=== PATIENT | female | born 1985 | race Caucasian/White ===

== ENCOUNTER 2020-05-20 13:45 | Outpatient (REF) | payer MEDICAID, SELFPAY ==
--- NOTE | 2020-05-20 | US_ITS ---
EXAMINATION: US PELVIS, COMPLETE CLINICAL INFORMATION: Pelvic and perineal pain. COMPARISON: None. TECHNIQUE: Transabdominal and transvaginal imaging was performed. FINDINGS: LMP: 3 weeks ago. Uterus is anteverted , measuring 10.5 x 4.3 x 5.6 cm. No focal uterine lesion. Endometrial thickness 1.5 cm. Nabothian cysts present. Right ovary measures 3.8 x 2.5 x 2.7 cm. Volume 13.4 mL. A 2 cm cyst present. Left ovary measures 3.4 x 1.8 x 2 cm. Volume 6.4 mL. Multiple follicles, with the largest cyst measuring 1.8 cm. Vascular flow in bilateral ovaries. No free fluid in the cul-de-sac. IMPRESSION: Unremarkable pelvic ultrasound. Bilateral ovarian cysts, largest measuring up to 2 cm in size.
== END 2020-05-20 13:46 | disposition home or self-care (01) ==
LOC: HO.US 13:45
PROVIDERS: Visit Provider Family Medicine
DX: R10.2 Pelvic and perineal pain (principal)
CPT/HCPCS: 76830; 76856

== ENCOUNTER 2021-11-02 14:43 | Outpatient (REF) | payer MEDICAID, SELFPAY ==
--- NOTE | ~2021-11-02 | US_ITS ---
EXAMINATION: US PELVIS CLINICAL INFORMATION: Pain COMPARISON: Previous pelvic ultrasound May 2020 TECHNIQUE: Ultrasound of the pelvis is performed using both transabdominal and transvaginal transducers along with Doppler. Transvaginal imaging is performed due to inadequate visualization transabdominally. FINDINGS: The uterus is anteverted and measures 10 x 4.5 x 5.8 cm in dimension. No focal uterine lesion is seen. Endometrial thickness is normal measuring 0.6 cm. The right ovary is normal-appearing and measures 3.9 x 2.6 cm. The left ovary measures 3.5 x 2.9 x 3.4 cm. There is a 1.5 x 1.2 x 1.5 cm left adnexal or paraovarian simple cyst. This is slightly decreased in size from 1.8 x 1.6 x 1.8 cm on previous exam. There is a small amount of fluid in the pelvis. US/US pelvic and transvaginal IMPRESSION: 1.5 x 1.2 x 1.5 cm left adnexal or paraovarian simple cyst slightly decreased from 1.8 x 1.6 x 1.8 cm on May 2020 exam.
== END 2021-11-02 14:44 | disposition home or self-care (01) ==
LOC: HO.HMGCX 14:43
PROVIDERS: PCP Family Medicine; Visit Provider Family Medicine
DX: R10.2 Pelvic and perineal pain (principal)
CPT/HCPCS: 76830; 76856

== ENCOUNTER 2022-05-20 11:07 | Outpatient (REF) | payer MEDICAID, SELFPAY ==
--- NOTE | ~2022-05-20 | XR_ITS ---
EXAMINATION: XR CHEST CLINICAL INFORMATION: Preprocedural evaluation COMPARISON: None TECHNIQUE: 2 views of the chest were obtained. FINDINGS: The lungs are clear. There is no airspace consolidation or groundglass opacity or effusion. The costophrenic sulci are well-defined. The heart is normal in size. The vascularity is normal. The hilar and mediastinal contours and bony structures are unremarkable. XR/XR chest 2V IMPRESSION: Unremarkable examination.
--- NOTE | 2022-05-20 11:14 | ECG_ITS ---
Test Reason : PREPROC EXAM Blood Pressure : / mmHG Vent. Rate : 076 BPM Atrial Rate : 076 BPM P-R Int : 170 ms QRS Dur : 084 ms QT Int : 386 ms P-R-T Axes : 053 000 029 degrees QTc Int : 434 ms Normal sinus rhythm Normal ECG No previous ECGs available Referred By: Ivy Harman Electronically Signed By:ETJ MOODY
[2022-05-20 12:17] LABS: Hematocrit 37.4 % (37.0-47.0); Hemoglobin 11.8 g/dl (12.0-16.0); Mean Corpuscular HGB Conc 31.6 g/dl (31.0-35.0); Mean Corpuscular Hemoglobin 26.6 pg (27.0-33.0); Mean Corpuscular Volume 84.4 fL (80.0-98.0); Mean Platelet Volume 10.9 fL (9.4-12.3); Platelet Count 279 X10*3/uL (160-400); Red Blood Count 4.43 X10*6/uL (4.20-5.50); Red Cell Distribution Width 13.4 % (11.0-16.0); White Blood Count 6.5 X10*3/uL (4.8-10.8)
[2022-05-20 12:23] LABS: INTERNATIONAL NORM RATIO 1.1 (0.9-1.1); Prothrombin Time 12.4 SEC (10.0-13.1)
[2022-05-20 12:26] LABS: Partial Thromboplastin Time 31.8 SEC (26.0-36.4)
[2022-05-20 13:10] LABS: Anion Gap 13 (12-20); Blood Urea Nitrogen 9 mg/dL (9-16); Calcium 9.9 mg/dL (8.4-10.2); Carbon Dioxide 25 mmol/L (22-29); Chloride 103 mmol/L (96-108); Estimated Glomerular Filt Rate > 60; Glucose Random 78 mg/dL (60-115); Iron 92 mcg/dL (30-160); Percent Iron Saturation 26 % (15-50); Potassium 3.9 mmol/L (3.3-5.1); Sodium 137 mmol/L (135-145); Total Iron Binding Capacity 358 mcg/dL (228-428); Unsaturated Iron Binding 266 ug/dL
[2022-05-20 13:18] LABS: Ferritin 47 ng/mL (10-122)
[2022-05-20 13:25] LABS: Folate 19.8 ng/mL (> or = 4.0); Vitamin B12 972 pg/mL (200-900)
== END 2022-05-20 11:08 | disposition home or self-care (01) ==
LOC: HO.XRAY 11:07
PROVIDERS: PCP Family Medicine; Visit Provider Family Medicine
DX: Z01.818 Encounter for other preprocedural examination (principal)
CPT/HCPCS: 36415; 71046; 80048; 82607; 82728; 82746; 83540; 85027; 85610; 85730; 93005

== ENCOUNTER 2022-11-25 11:25 | Outpatient (REF) | payer MEDICAID, SELFPAY ==
--- NOTE | 2022-11-25 08:30 | EMG_ITS ---
Bilateral median and ulnar motor and sensory studies were performed. Bilateral radial sensory studies were performed, and paraspinal muscles were tested with a needle. 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 MD KADE Parekh/MAXX / [id number]
== END 2022-11-25 11:26 | disposition home or self-care (01) ==
LOC: HO.NEURO 11:25
PROVIDERS: PCP Family Medicine; Visit Provider Family Medicine
DX: R20.0 Anesthesia of skin (principal); M79.603 Pain in arm, unspecified
CPT/HCPCS: 95886; 95911

== ENCOUNTER 2023-08-04 13:32 | Outpatient (REF) | payer MEDICAID, SELFPAY ==
[2023-08-04 17:03] LABS: CT PCR NOT DETECTED (Not Detect.); NG PCR NOT DETECTED (Not Detect.)
[2023-08-05 13:21] LABS: BV Int Neg Control Negative (Negative); BV Int Pos Control Positive (Positive)
[2023-08-11 07:54] LABS: HPV mRNA E6/E7 rflx Not Detected (Not Detected)
== END 2023-08-04 13:33 | disposition home or self-care (01) ==
LOC: HO.HHCLNP 13:32
PROVIDERS: Visit Provider Family Medicine
DX: Z01.419 Encounter for gynecological examination (general) (routine) without abnormal findings (principal); Z11.51 Encounter for screening for human papillomavirus (HPV)
CPT/HCPCS: 0353U; 87480; 87510; 87624; 87660; 88142

== ENCOUNTER 2023-08-16 08:11 | Outpatient (REF) | payer MEDICAID, SELFPAY ==
[2023-08-16 11:07] LABS: Hematocrit 40.4 % (37.0-47.0); Hemoglobin 12.6 g/dl (12.0-16.0); Mean Corpuscular HGB Conc 31.2 g/dl (31.0-35.0); Mean Corpuscular Hemoglobin 27.3 pg (27.0-33.0); Mean Corpuscular Volume 87.6 fL (80.0-98.0); Mean Platelet Volume 11.2 fL (9.4-12.3); Platelet Count 273 X10*3/uL (160-400); Red Blood Count 4.61 X10*6/uL (4.20-5.50); Red Cell Distribution Width 14.1 % (11.0-16.0); White Blood Count 8.4 X10*3/uL (4.8-10.8)
[2023-08-16 11:37] LABS: Estimated Average Glucose 117 mg/dL; Hemoglobin A1c % 5.7 % (<6.0)
[2023-08-16 12:46] LABS: Alanine Aminotransferase 15 U/L (0-31); Albumin Level 4.3 g/dL (3.5-5.0); Alkaline Phosphatase 66 U/L (39-117); Anion Gap 10 (12-20); Aspartate Amino Transferase 19 U/L (5-31); Bilirubin Direct 0.1 mg/dL (0.0-0.5); Bilirubin Total 0.3 mg/dL (0.0-1.0); Blood Urea Nitrogen 9 mg/dL (9-16); Calcium 9.5 mg/dL (8.4-10.2); Carbon Dioxide 27 mmol/L (22-29); Chloride 108 mmol/L (96-108); Cholesterol 186 mg/dL (<200); Estimated Glomerular Filt Rate > 60; Glucose Random 89 mg/dL (60-115); HDL Cholesterol 48 mg/dL (>40); LDL Cholesterol Calculated 118 mg/dL (<100); Potassium 5.3 mmol/L (3.3-5.1); Sodium 140 mmol/L (135-145); Total Protein 7.9 g/dL (6.5-8.0); Triglycerides 102 mg/dL (<150)
[2023-08-16 13:03] LABS: Free T4 (Free Thyroxine) 0.89 ng/dL (0.71-1.85); Thyroid Stimulating Hormone 0.81 uIU/mL (0.32-4.0); Vitamin D 25-OH Total 30.8 ng/mL (>30)
[2023-08-17 04:48] LABS: HBS Num1 52.73 mIU/mL (0-7.99); HBsAGNum1 0.27 S/CO (0.00-0.99); HIV AB/AG Nonreactive (Nonreactive); HIV Num 1 0.06 S/CO (0.00-0.99); Hepatitis B Surface Antigen Negative (Negative); ~HepC Num1 0.13 S/CO (0.00-0.79); ~Hepatitis B Surface Antibody REACTIVE (Nonreactive); ~Hepatitis C Antibody Nonreactive (Nonreactive)
[2023-08-17 13:07] LABS: RPR Rapid Plasma Reagin NON-REACTIVE (NON-REACTIVE)
== END 2023-08-16 08:12 | disposition home or self-care (01) ==
LOC: HO.HHCL 08:11
PROVIDERS: Visit Provider Family Medicine
DX: Z01.419 Encounter for gynecological examination (general) (routine) without abnormal findings (principal)
CPT/HCPCS: 36415; 80048; 80061; 80076; 82306; 83036; 84439; 84443; 85027; 86592; 86706; 86803; 87340; 87389

== ENCOUNTER 2023-08-23 13:09 | Outpatient (REF) | payer MEDICAID, SELFPAY ==
[2023-08-23 17:36] LABS: Potassium 4.4 mmol/L (3.3-5.1)
== END 2023-08-23 13:10 | disposition home or self-care (01) ==
LOC: HO.HHCL 13:09
PROVIDERS: Visit Provider Family Medicine
DX: E87.5 Hyperkalemia (principal)
CPT/HCPCS: 36415; 84132

== ENCOUNTER 2023-10-07 16:20 | Outpatient (REF) | payer MEDICAID, SELFPAY ==
[2023-10-07 17:40] LABS: MANUAL DIFF FLAG NO
[2023-10-07 17:42] LABS: Basophils Absolute Auto 0.1 X10*3/uL (0.0-0.2); Basophils Percent Auto 0.9 % (0-2); Eosinophils Absolute Auto 0.5 X10*3/uL (0.0-0.4); Eosinophils Percent Auto 5.7 % (0-4); Hematocrit 37.1 % (37.0-47.0); Hemoglobin 11.6 g/dl (12.0-16.0); Imm Gran Abs Auto 0.03 X10*3/uL (0.00-0.03); Imm Gran Pct Auto 0.3 % (0.0-0.4); Mean Corpuscular HGB Conc 31.3 g/dl (31.0-35.0); Mean Corpuscular Hemoglobin 26.5 pg (27.0-33.0); Mean Corpuscular Volume 84.9 fL (80.0-98.0); Mean Platelet Volume 10.8 fL (9.4-12.3); Monocytes Absolute Auto 0.8 X10*3/uL (0.1-1.2); Monocytes Percent Auto 9.2 % (2-11); Neutrophils Absolute Auto 4.5 x10*3/uL (2.0-8.3); Neutrophils Percent Auto 50.9 % (45-73); Platelet Count 289 X10*3/uL (160-400); Red Blood Count 4.37 X10*6/uL (4.20-5.50); Red Cell Distribution Width 13.7 % (11.0-16.0); White Blood Count 8.9 X10*3/uL (4.8-10.8)
[2023-10-07 18:05] LABS: Iron 128 mcg/dL (30-160); Percent Iron Saturation 42 % (15-50); Total Iron Binding Capacity 305 mcg/dL (228-428); Unsaturated Iron Binding 177 ug/dL
[2023-10-07 18:20] LABS: Ferritin 32 ng/mL (10-122)
== END 2023-10-07 16:21 | disposition home or self-care (01) ==
LOC: HO.HHCLNP 16:20
PROVIDERS: Visit Provider Family Medicine
DX: D64.9 Anemia, unspecified (principal)
CPT/HCPCS: 36415; 82728; 83540; 85025

== ENCOUNTER 2024-07-27 12:28 | Outpatient (REF) | payer MEDICAID, SELFPAY ==
[2024-07-27 16:10] LABS: Hematocrit 38.7 % (37.0-47.0); Hemoglobin 12.1 g/dl (12.0-16.0); Mean Corpuscular HGB Conc 31.3 g/dl (31.0-35.0); Mean Corpuscular Hemoglobin 26.8 pg (27.0-33.0); Mean Corpuscular Volume 85.8 fL (80.0-98.0); Mean Platelet Volume 10.9 fL (9.4-12.3); Platelet Count 314 X10*3/uL (160-400); Red Blood Count 4.51 X10*6/uL (4.20-5.50); Red Cell Distribution Width 13.5 % (11.0-16.0); White Blood Count 9.6 X10*3/uL (4.8-10.8)
[2024-07-27 16:24] LABS: Estimated Average Glucose 126 mg/dL; Hemoglobin A1C 130.7231 umol/L
[2024-07-27 16:40] LABS: Alanine Aminotransferase 26 U/L (0-31); Albumin Level 4.5 g/dL (3.5-5.0); Alkaline Phosphatase 71 U/L (39-117); Anion Gap 11 (12-20); Aspartate Amino Transferase 23 U/L (5-31); Bilirubin Direct < 0.2 mg/dL (0.0-0.5); Bilirubin Total 0.2 mg/dL (0.0-1.0); Blood Urea Nitrogen 12 mg/dL (9-16); Calcium 9.6 mg/dL (8.4-10.2); Carbon Dioxide 26 mmol/L (22-29); Chloride 107 mmol/L (96-108); Cholesterol 191 mg/dL (<200); Estimated Glomerular Filt Rate > 60; Glucose Random 89 mg/dL (60-115); HDL Cholesterol 45 mg/dL (>40); LDL Cholesterol Calculated 122 mg/dL (<100); Sodium 140 mmol/L (135-145); Total Protein 8.2 g/dL (6.5-8.0); Triglycerides 121 mg/dL (<150)
[2024-07-27 16:41] LABS: Rheumatoid Factor < 13.0 IU/mL (<15.0)
[2024-07-27 16:48] LABS: Free T4 (Free Thyroxine) 1.17 ng/dL (0.71-1.85); Thyroid Stimulating Hormone 0.51 uIU/mL (0.32-4.0); Vitamin D 25-OH Total 28.9 ng/mL (>30)
[2024-07-27 16:53] LABS: Erythrocyte Sedimentation Rate 14 MM/HR (0-20)
[2024-07-27 18:47] LABS: CT PCR NOT DETECTED (Not Detect.); NG PCR NOT DETECTED (Not Detect.)
[2024-07-28 08:41] LABS: Hepatitis A Antibody IgG Nonreactive (Nonreactive)
[2024-07-28 08:55] LABS: HBc Num1 0.11 S/CO (0.00-0.79); HBsAGNum1 0.49 S/CO (0.00-0.99); HIV AB/AG Nonreactive (Nonreactive); HIV Num 1 0.06 S/CO (0.00-0.99); Hepatitis B Core Antibody Nonreactive (Nonreactive); Hepatitis B Surface Antigen Negative (Negative); ~HepC Num1 0.11 S/CO (0.00-0.79); ~Hepatitis B Surface Antibody REACTIVE (Nonreactive); ~Hepatitis C Antibody Nonreactive (Nonreactive)
[2024-07-30 14:43] LABS: Anti Nuclear Antibody Screen NEGATIVE (NEGATIVE)
[2024-07-30 16:30] LABS: RPR Rapid Plasma Reagin NON-REACTIVE (NON-REACTIVE)
[2024-07-31 09:59] LABS: Lyme Abs Screen <0.90 index
== END 2024-07-27 12:29 | disposition home or self-care (01) ==
LOC: HO.HHCX 12:28
PROVIDERS: PCP Family Medicine; Visit Provider Family Medicine
DX: R20.0 Anesthesia of skin (principal); D64.9 Anemia, unspecified; R93.89 Abnormal findings on diagnostic imaging of other specified body structures; M79.641 Pain in right hand; M79.642 Pain in left hand; R19.00 Intra-abdominal and pelvic swelling, mass and lump, unspecified site; B35.1 Tinea unguium; Z00.00 Encounter for general adult medical examination without abnormal findings
CPT/HCPCS: 73130; 80048; 80061; 80076; 82306; 83036; 84439; 84443; 85027; 85652; 86038; 86140; 86431; 86592; 86617; 86618; 86704; 86706; 86708; 86803; 87340; 87389; 87491; 87591

== ENCOUNTER 2024-07-27 12:45 | Outpatient (REF) | payer MEDICAID, SELFPAY | END 2024-07-27 12:46 | disposition home or self-care (01) | LOC: HO.HHCL 12:45 | PROVIDERS: Visit Provider Family Medicine | DX: Z13.89 Encounter for screening for other disorder (principal) ==

== ENCOUNTER 2024-12-25 16:13 | Outpatient (REF) | payer MEDICAID, SELFPAY ==
[2024-12-25 18:31] LABS: Estimated Average Glucose 126 mg/dL; Hemoglobin A1C 132.8234 umol/L; Total Hemoglobin (HGBA1C) 3197.3184 umol/L
[2024-12-26 19:38] LABS: Herpes Simplex Type 2 IgG <0.90 index
== END 2024-12-25 16:14 | disposition home or self-care (01) ==
LOC: HO.HHCL 16:13
PROVIDERS: Visit Provider Family Medicine
DX: K13.70 Unspecified lesions of oral mucosa (principal); R73.03 Prediabetes
CPT/HCPCS: 36415; 83036; 86695; 86696; 87255

== ENCOUNTER 2025-06-27 08:31 | Outpatient (REF) | payer MEDICAID, SELFPAY ==
--- OUTSIDE RECORDS SUMMARY | 2025-06-25 10:00 | XMS_ITS | Encounter Summary ---
Author Organization [employer] Address [address] [facility] [facility] 7t [place] [address] Care Team Providers Care Fitness Management Director Name Role Phone Ivy Harman DO Primary Care Provider + [phone] Reason for Visit * Reason Comments Follow up weight Encounter Details Date Type Department Care Team ([facility] st Contact Info) Description 06/25/2025 10:00 AM EST Office Visit [facility] [address] [place], [place] [phone] Ivy Harman DO [address] [place] [address] Arrived Social History Tobacco Use Types Packs/Day Years Used Date Smoking Tobacco: Never Passive Smoke Exposure: Never Smokeless Tobacco: Never Tobacco Cessation:Counseling Given: Not Answered Alcohol Use Standard Drinks/Week Comments Never 0 (1 standard drink = 0.6 oz pur e alcohol) Depression Answer Date Recorded Patient Health Questionnaire-9 Score 5 06/25/2025 Patient Health Questionnaire-9 Score 5 06/25/2025 Last PHQ-9: Questionnaire Data Not on file 1 08/25/2024 Housing Stability Answer Date Recorded What is your housing situation today? I have anastasiia yousif 06/18/[address] you li ve. Do you have problems with any of the following? None of the above 06/18/2025 Food Insecurity Answer Date Recorded Within the past 12 months, y ou worried that your food would run out before you got money to buy more: Never True 06/18/2025 Within the past 12 months,th e food you bought just didn't last and you didn't have enough money to get more: Never True 11/2024 Transportation Answer Date Recorded In the past 12 months, has l ack of transportation kept you from medical appts, meetings, work or from getting things needed for daily living? No 06/18/2025 Utilities Answer Date Recorded In the past 12 months, has t he electric, gas, oil or water company threatened to shut off services in your home? No 06/18/2025 Depression Answer Date Recorded Patient Health Questionnaire-2 Score 2 06/25/2025 Internet Access Answer Date Recorded Internet Access Q1 Yes 06/18/2025 Internet Access Q2 Not on file 06/18/2025 Comments No Sex and Gender Information Value Date Recorded Sex Assigned at Female 06/14/2022 10:32 AM EDT Legal Sex Female 10:32 AM EDT Gender Identity Female 06/14/2022 10:32 AM EDT Sexual Orientation Straight 06/14/2022 10 :32 AM EDT documented as of this encounter Last Filed Vital Signs Vital Sign Reading Time Taken Comments Blood Pressure 128/84 06/25/2025 10:19 AM EST Pulse 100 06/25/2025 10:19 AM EST Temperature 36.9 C (98.4 F) 06/25/2025 10:19 AM EST Respiratory Rate 20 06/25/2025 10:19 AM EST Oxygen Saturation - - Inhaled Oxygen Concentration - - Weight 70.9 kg (156 lb 6.4 oz) 06/25/2025 10:19 AM EST Height 154.9 cm (5' 1 ) 06/25/2025 10:19 AM EST Body Mass Index 29.55 06/25/2025 10:19 AM EST documented in this encounter Functional Status * Over the past 2 weeks, how often have you been bothered by any of the following problems? Question Answer Date of Assessment Author Patient Health Questionnaire -2 Score 2 06/25/2025 10:21 AM EST Ange Goodman MA * Little interest or pleasure in doing things Answer Date of Assessment Author Several days 06/25/2025 10:21 AM Ange Wren [place] * Feeling down, depressed, or hopeless Answer Date of Assessment Author Several days 06/25/2025 10:21 AM EST Ange Goodman [place] * Trouble falling or staying asleep, or sleeping too much Answer Date of Assessment Author Not at all 06/25/2025 10:21 AM Aneg Wren [place] * Feeling tired or having little energy Answer Date of Assessment Author Several days 06/25/2025 10:21 AM Ange Wren [place] * Poor appetite or overeating Answer Date of Assessment Author Not at all 06/25/2025 10:21 AM Ange Wren [place] * Feeling bad about yourself - or that you are a failure or have let yourself or your family down Answer Date of Assessment Author Several days 06/25/2025 10:21 AM Ange Wren [place] * Trouble concentrating on things, such as reading the newspaper or watching television Answer Date of Assessment Author Several days 06/25/2025 10:21 AM Ange Wren [place] * Moving or speaking so slowly that other people could have noticed? Or the opposite - being so fidgety or restless that you have been moving around a lot more than usual. Answer Date of Assessment Author Not at all 06/25/2025 10:21 AM Ange Wren [place] * Thoughts that you would be better off or hurting yourself in some way Answer Date of Assessment Author Not at all 06/25/2025 10:21 AM Ange Wren [place] * Patient Health Questionnaire-9 Score Answer Date of Assessment Author 5 06/25/2025 10:21 AM Ange Wren [place] * How difficult have these problems made it for you to do your work, take care of things at home, or get along with other people? Answer Date of Assessment Author Somewhat difficult 06/25/2025 10:21 AM Ange Sexton MA * Over the last 2 weeks, how often have you been bothered by any of the following problems? Question Answer Date of Assessment Author Feeling nervous, anxious, or on edge 1 06/25/2025 10:21 AM Ange Wren MA Not being able to stop or co ntrol worrying 1 06/25/2025 10:21 AM Ange Wren [place] Worrying too much about diff erent things 1 06/25/2025 10:21 AM Ange Wren [place] Trouble relaxing 1 06/25/2025 10:21 AM Ange Wren [place] Being so restless that it is hard to sit still 0 06/25/2025 10:21 AM Ange Wren MA Becoming easily annoyed or irritable 0 06/25/2025 10:21 AM Ange Wren [place] Feeling afraid as if somethi ng awful might happen 1 06/25/2025 10:21 AM Ange Wren MA PERFECTO-7 Total Score 5 06/25/2025 10:21 AM Ange Wren [place] documented as of this encounter Plan of Treatment Upcoming Encounters Date Type Department Care Team (Late st Contact Info) Description 07/26/2025 9:45 AM EST Office Visit [facility] [address] [place] [address] Juan Ramon Ballard MD [address] [place] [address] documented as of this encounter Visit Diagnoses Not on filedocumented in this encounter Additional Health Concerns Assessment Noted Time PHQ-9 Depression Total Score: 5 06/25/20 25 10:21 AM EST documented as of this encounter Care Teams Fitness Management Director Relationship Specialty Start Date End Date Ivy Harman DO [address] [place] [address] PCP - General Family Medicine 07/11/17 documented as of this encounter
--- OUTSIDE RECORDS SUMMARY | 2025-06-27 08:52 | XMS_ITS | Encounter Summary ---
Author Organization [employer] Address [address] [place] [address] Care Team Providers Care Php Wordpress Developer Name Role Phone JuanpabloIvy mckeon Primary Care Provider + [phone] Reason for Visit * Reason Onset Date Comments Med Refill 12/25/2024 Encounter Details Date Type Department Care Team ([facility] st Contact Info) Description 12/25/2024 Refill [facility] [address] [place], [place] [phone] Josefa Rock MD [address] [place] [address] Mild intermittent asthma without complication Social History Tobacco Use Types Packs/Day Years Used Date Smoking Tobacco: Never Passive Smoke Exposure: Never Smokeless Tobacco: Never Alcohol Use Standard Drinks/Week Comments Never 0 (1 standard drink = 0.6 oz pur e alcohol) Depression Answer Date Recorded Patient Health Questionnaire-9 Score 0 07/27/2024 Patient Health Questionnaire-9 Score 0 07/27/2024 Last PHQ-9: Questionnaire Data Not on file 1 09/27/2023 Housing Stability Answer Date Recorded What is your housing situation today? I have anastasiia yousif 09/21/[address] you li ve. Do you have problems with any of the following? None of the above 09/21/2023 Food Insecurity Answer Date Recorded Within the past 12 months, y ou worried that your food would run out before you got money to buy more: Never True 09/21/2023 Within the past 12 months,th e food you bought just didn't last and you didn't have enough money to get more: Never True 02/2024 Transportation Answer Date Recorded In the past 12 months, has l ack of transportation kept you from medical appts, meetings, work or from getting things needed for daily living? No 09/21/2023 Utilities Answer Date Recorded In the past 12 months, has t he electric, gas, oil or water company threatened to shut off services in your home? No 09/21/2023 Depression Answer Date Recorded Patient Health Questionnaire-2 Score 0 07/27/2024 Comments No Sex and Gender Information Value Date Recorded Sex Assigned at Female 06/14/2022 10:32 AM EDT Legal Sex Female 10:32 AM EDT Gender Identity Female 06/14/2022 10:32 AM EDT Sexual Orientation Straight 06/14/2022 10 :32 AM EDT documented as of this encounter Plan of Treatment Upcoming Encounters Date Type Department Care Team (Late st Contact Info) Description 07/26/2025 9:45 AM EST Office Visit [facility] [address] [place] [phone] Juan Ramon Ballard MD [address] [place] [phone] documented as of this encounter Visit Diagnoses Diagnosis Mild intermittent asthma without complication documented in this encounter Additional Health Concerns Assessment Noted Time PHQ-9 Depression Total Score: 0 07/27/20 24 11:27 AM EST documented as of this encounter Care Teams Php Wordpress Developer Relationship Specialty Start Date End Date Ivy Harman DO [address] [place] [address] PCP - General Family Medicine 07/11/17 documented as of this encounter
--- OUTSIDE RECORDS SUMMARY | 2025-06-27 08:52 | XMS_ITS | Encounter Summary ---
Author Organization [employer] Address [address] [place] [address] Care Team Providers Care Address Change Clerk Name Role Phone KimaniIvy Primary Care Provider + [phone] Reason for Visit * Reason Onset Date Comments Med Refill 02/22/2025 Encounter Details Date Type Department Care Team ([facility] st Contact Info) Description 02/22/2025 Refill [facility] [address] [place], [place] [phone] Josefa Rock MD [address] [place] [address] Mild intermittent asthma without complication Social History [...] Description 07/26/2025 9:45 AM EST Office Visit [facility] [address] [place] [phone] Juan Ramon Ballard MD [address] [place] [address] documented as of this encounter Visit Diagnoses Diagnosis Mild intermittent asthma without complication documented in this encounter Additional Health Concerns Assessment Noted Time PHQ-9 Depression Total Score: 0 07/27/20 24 11:27 AM EST documented as of this encounter Care Teams Address Change Clerk Relationship Specialty Start Date End Date Ivy Harman DO [address] [place] [phone] PCP - General Family Medicine 07/11/17 documented as of this encounter
--- OUTSIDE RECORDS SUMMARY | 2025-06-27 08:52 | XMS_ITS | Clinical Summary ---
Author Organization [facility] Address [address] [place] [address] Phone Care Team Providers Care Research Electrician Name Role Phone KimaniIvy Primary Care Provider [phone] Allergies No known active allergies Medications Hospital, Clinic, or Other Facility Administered Medication Ordered Dose Route Frequency Start Date End Date Status lidocaine (XYLOCAINE) 1 % injection 0.5 mLIndications:Bilate ral carpal tunnel syndrome .5 mL Once PRN Procedure 06/21/2025 06/21/2025 Ended lidocaine (XYLOCAINE) 1 % injection 0.5 mLIndications:Bilate ral carpal tunnel syndrome .5 mL Once PRN Procedure 06/21/2025 06/21/2025 Ended triamcinolone acetonide (KENALOG-40) 40 mg/mL injection 40 mgIndications:Bilate ral carpal tunnel syndrome 40 mg Once PRN Procedure 06/21/2025 06/21/2025 Ended triamcinolone acetonide (KENALOG-40) 40 mg/mL injection 40 mgIndications:Bilate ral carpal tunnel syndrome 40 mg Once PRN Procedure 06/21/2025 06/21/2025 Ended Encounters Date Type Department Care Team Description 06/21/2025 11:30 AM EST Office Visit [facility] [address] [facility] [place] [address] Moira Quintana PA Bilateral carpal tunnel syndrome (Primary Dx) from Last 3 Months Social History Tobacco Use Types Packs/Day Years Used Date Smoking Tobacco: Never Assessed Comments Unknown Sex and Gender Information Value Date Recorded Sex Assigned at Female 08/14/2024 1:16 PM EST Legal Sex Female 6:16 AM EST Gender Identity Female 08/14/2024 1:16 PM EST Sexual Orientation Straight 08/14/2024 1: 16 PM EST Obstetrics History Last Filed Vital Signs Vital Sign Reading Time Taken Comments Blood Pressure 141/92 10/15/2024 9:29 PM EST Pulse 119 10/15/2024 11:42 PM EST Temperature 37.9 C (100.2 F) 10/15/2024 11:21 PM EST Respiratory Rate 16 10/15/2024 9:29 PM EST Oxygen Saturation 93% 10/15/2024 9:37 PM EST Inhaled Oxygen Concentration - - Weight 71.2 kg (157 lb) 10/15/2024 12:49 PM EST Height 154.9 cm (5' 1 ) 10/15/2024 12:49 PM EST Body Mass Index 29.66 10/15/2024 12:49 PM EST Plan of Treatment Upcoming Encounters Date Type Department Care Team (Late st Contact Info) Description 08/27/2025 2:30 PM EST Office Visit [facility] [address] [facility] [address] [place] [address] Sayda Beavers MD [address] [facility] [address] [place] [address] Health Maintenance Due Date Last Done Comments Hepatitis B Vaccines (1 of 3 - 19+ 3-dose series) 2006 Pneumococcal Vaccine: Pediatrics (0 to 5 Years) and At-Risk Patients (6 to 49 Years) (1 of 2 - PCV) 2006 HPV Vaccines (1 - 3-dose SCD M series) 2014 Social Influencers of Health Screening 08/07/2024 Depression Screening 08/15/2024 COVID-19 Vaccine ( - 2024-2 6 season) 2025 Influenza Vaccine (#1) 2025 Cervical Cancer Screening: P ap Smear 08/04/2026 08/04/2023 Cholesterol Screening (Lipid Panel) 07/27/2029 07/27/2024 DTaP,Tdap,and Td Vaccines (2 - Td or Tdap) 11/04/2031 11/03/2021 RSV Immunization Adult Patients (1 - 1-dose 75+ series) 2062 MMR Vaccines Aged Out 12/23/2021, 11/25/2021 No longer eligible based on patient's age to complete this topic HIV Screening Completed 07/27/2024 Hepatitis C Screening Completed 07/27/2024 HIB Vaccines Aged Out No longer eligi ble based on patient's age to complete this topic Hepatitis A Vaccines Aged Out No long er eligible based on patient's age to complete this topic IPV Vaccines Aged Out No longer eligi ble based on patient's age to complete this topic Meningococcal ACWY Vaccine Aged Out N o longer eligible based on patient's age to complete this topic Meningococcal B Vaccine Aged Out No l onger eligible based on patient's age to complete this topic RSV Immunization Patients Under 20 months Aged Out No longer eligible b ased on patient's age to complete this topic Varicella Vaccines Aged Out No longer eligible based on patient's age to complete this topic Procedures Procedure Name Priority Date/Time Associated Diagnosis Comments AR INJECTION CARPAL TUNNEL THERAPEUTIC Routine 06/21/2025 11:30 AM EST Bilateral carpal tunnel syndrome from Last 3 Months Results * AR INJECTION CARPAL TUNNEL THERAPEUTIC (06/21/2025 11:30 AM EST) Narrative Moira Quintana PA - 06/21/2025 11:30 AM EST CHANTAL Esposito 06/21/2025 12:10 PM Hand / UE Inj/Asp: bilateral carpal tunnel for carpal tunnel syndrome Details: 25 G needle, volar approach Medications (Right): 0.5 mL lidocaine 1 %; 40 mg triamcinolone acetonide 40 mg/mL Medications (Left): 0.5 mL lidocaine 1 %; 40 mg triamcinolone acetonide 40 mg/mL Informed Consent: Laterality: Bilateral Relevant images/test results available and reviewed: yes Health status cleared: Yes Procedure/treatment, purpose, treatment alternatives, risks/potential complications and benefits explained: yes Risk/complications/benefits details: Risks of infection, thinning of the skin and temporary skin discoloration discussed. Discussed risks of temporary increased pain after injection and swelling and mild redness at injection site for couple days. Explained occasionally cortisone injection can cause facial flushing temporarily. Benefits pain management. For postop injection pain ice, Tylenol and/or NSAIDs if patient can take Patient questions answered: yes Patient agrees, verbalizes understanding, and wants to proceed: yes Consent given by: Patient Informed consent discussion completed by Physician/MELANY with patient: Verbal Pre-procedure timeout performed: yes us Moira CORNEJO IN CLINIC/BEDSIDE ORDERABLES Final Result from Last 3 Months Insurance * Guarantor: Ghada Alexandra Account Type Relation to Patient Date of Phone Billing Address Personal/Family Self 1985 [address] [place] [address] MEDICAID - [place] Care Teams Research Electrician Relationship Specialty Start Date End Date Ivy Harman DO [address] [place], [place] PCP - General Family Medicine 08/09/24
--- OUTSIDE RECORDS SUMMARY | 2025-06-27 08:52 | XMS_ITS | Encounter Summary ---
Author Organization [employer] Address [address] [facility] [address] [facility] [address] [place] [address] Care Team Providers Care Motor Setter Name Role Phone JuanpabloIvy mckeon Primary Care Provider + [phone] Reason for Visit * Reason Onset Date Comments Med Refill 12/25/2024 Encounter Details Date Type Department Care Team ([facility] st Contact Info) Description 12/25/2024 Refill [facility] [address] [place], [place] [phone] Karen Cameron MD [address] [place] [address] Social History Tobacco Use Types Packs/Day Years [...] Description 07/26/2025 9:45 AM EST Office Visit [facility] [address] [place] [phone] Juan Ramon Ballard MD [address] [place] [address] documented as of this encounter Visit Diagnoses Not on filedocumented in this encounter Additional Health Concerns Assessment Noted Time PHQ-9 Depression Total Score: 0 07/27/20 24 11:27 AM EST documented as of this encounter Care Teams Motor Setter Relationship Specialty Start Date End Date Ivy Harman DO [address] [place] [address] PCP - General Family Medicine 07/11/17 documented as of this encounter
--- OUTSIDE RECORDS SUMMARY | 2025-06-27 08:52 | XMS_ITS | Encounter Summary ---
Demographics Address [address] [place] [address] Mobile Phone Work Phone Email Address Preferred Language es Marital Status Single Restorationist Affiliation Unknown Race White Ethnic Group Unknown Author Organization [employer] Address [address] [facility] [address] [place] [address] Care Team Providers Care Plane Tableman Name Role Phone JuanpabloIvy mckeon Primary Care Provider + [phone] Encounter Details Date Type Department Care Team ([facility] st Contact Info) Description 10/02/2024 Orders Only [facility] [address] [place] [address] ProviderTamara MD Social History Tobacco Use Types Packs/Day Years [...] t he electric, gas, oil or water [employer] threatened to shut off services in your [...] Description 07/26/2025 9:45 AM EST Office Visit [facility] [address] [place] [phone] Juan Ramon Ballard MD [address] [place] [address] documented as of this encounter Procedures Procedure Name Priority Date/Time Associated Diagnosis Comments CT ABD/PELVIS W/ IV CONTRAST ONLY Routine 09/28/2024 9:[address] ABDOMEN PELVIS W CONTRAST Routine 09/28/2024 9:15 AM EST documented in this encounter Results * CT ABD/PELVIS W/ IV CONTRAST ONLY (09/28/2024 9:15 AM EST) Anatomical Region Laterality Modality Body, Pelvis, Abdomen Computed T omography Historical Provider MD SHERIDAN CT PROCEDURES Final R esult * CT Abdomen Pelvis w/ Contrast (09/28/2024 9:15 AM EST) Anatomical Region Laterality Modality Body, Pelvis, Abdomen Computed T omography Historical Provider MD SHERIDAN CT PROCEDURES Final R esult documented in this encounter Visit Diagnoses Not on filedocumented in this encounter Additional Health Concerns Assessment Noted Time PHQ-9 Depression Total Score: 0 07/27/20 24 11:27 AM EST documented as of this encounter Care Teams Plane Tableman Relationship Specialty Start Date End Date Ivy Harman DO [address] [place] [phone] PCP - General Family Medicine 07/11/17 documented as of this encounter
--- OUTSIDE RECORDS SUMMARY | 2025-06-27 08:52 | XMS_ITS | Encounter Summary ---
Author Organization [employer] Address [address] [facility] [address] [place] [address] Care Team Providers Care Semiconductor Engineer Name Role Phone Ivy Harman Primary Care Provider + [phone] Encounter Details Date Type Department Care Team (Latest Contact Info) Description 06/25/2025 Travel Social History Tobacco Use Types Packs/Day Years [...] AM EDT documented as of this encounter Functional Status * Over the past 2 weeks, how often have you been bothered by any of the following problems? Question Answer Date of Assessment Author Patient Health Questionnaire -2 Score 2 06/25/2025 10:21 AM Ange Wren [place] * Little interest or pleasure in doing things Answer Date of Assessment Author Several days 06/25/2025 10:21 AM Ange Wren [place] * Feeling down, depressed, or hopeless Answer Date of Assessment Author Several days 06/25/2025 10:21 AM Ange Wren [place] * Trouble falling or staying asleep, or sleeping too much Answer Date of Assessment Author Not at all 06/25/2025 10:21 AM Ange Wren [place] * Feeling tired or having [...] 07/26/2025 9:45 AM EST Office Visit [facility] [address] [place] [address] Juan Ramon Ballard MD [address] [place] [address] documented as of this encounter Visit Diagnoses Not on filedocumented in this encounter Additional Health Concerns Assessment Noted Time PHQ-9 Depression Total Score: 5 06/25/20 25 10:21 AM EST documented as of this encounter Care Teams Semiconductor Engineer Relationship Specialty Start Date End Date Ivy Harman DO [address] [place] [address] PCP - General Family Medicine 07/11/17 documented as of this encounter
--- OUTSIDE RECORDS SUMMARY | 2025-06-27 08:52 | XMS_ITS | Clinical Summary ---
Author Organization [employer] Address 75 [facility] 7t [place] [address] Care Team Providers Care Cemetery Counselor Name Role Phone Ivy Harman Primary Care Provider [phone] Allergies No known active allergies Medications cholecalciferol (Vitamin D-3) 50 MCG (1999 UT) capsule TAKE 1 CAPSULE BY MOUTH DAILY 2 Active albuterol (2.5 MG/3ML) 0.083% nebulizer solutionIndicati ons:Mild intermittent asthma without complication Take 3 mL (2.5 mg) by nebulization every 6 (six) hours if needed for wheezing. 75 mL 11 5 026 Active omeprazole OTC (PriLOSEC OTC) 20 MG EC tabletIndication s:Reflux gastritis Take 1 tablet (20 mg) by mouth before breakfast. Do not crush, chew, or split. 10 tablet 5 026 Active gabapentin (Neurontin) 300 MG capsule TAKE 1 CAPSULE BY MOUTH AT BEDTIME 30 capsule 5 Active amitriptyline (Elavil) 10 MG tablet TAKE 1/2 TABLET TO 1 TABLET BY MOUTH AT BEDTIME 30 tablet 3 5 Active ketoconazole (NIZOral) 2 % shampoo APPLY TOPICALLY TWICE A WEEK 120 mL 3 5 Active sodium chloride ([place]) 0.65 % nasal spray SPRAY 1 SPRAY INTO EACH NOSTRIL EVERY DAY NEEDED FOR CONGESTION 15 mL 1 5 Active fluticasone (Flonase) 50 MCG/ACT nasal spray SPRAY 1 SPRAY INTO EACH NOSTRIL EVERY DAY 48 g 5 Active baclofen (Lioresal) 10 MG tablet TAKE 1 TABLET BY ORAL ROUTE 3 TIMES EVERY DAY NEED IT FOR MM SPASM/PAIN 90 tablet 1 Active acetaminophen (Mapap Arthritis Pain) 650 MG ER tablet TAKE 1 TABLET BY ORAL ROUTE EVERY 8 HOURS NEEDED 30 tablet 1 Active naproxen (Naprosyn) 500 MG tablet TAKE 1 TABLET BY MOUTH TWICE DAILY WITH FOOD NEEDED FOR PAIN 60 tablet 1 5 Active albuterol 108 (90 Base) MCG/ACT inhalerIndicatio ns:Mild intermittent asthma without complication INHALE 2 PUFFS BY MOUTH EVERY 4 HOURS NEEDED FOR WHEEZING 18 g 5 Active phentermine 30 MG capsuleIndicatio ns:BMI 31.0-31.9,adult Take 1 capsule (30 mg) by mouth before breakfast. 30 capsule 5 Active Active Problems Problem Noted Date Diagnosed Date Reflux gastritis 10/18/2024 Assessment & Plan (10/18/2024 1:23 PM EST): Dx with influenza A on 10/15/24. Since taking tamiflu, prednisone and naproxen has had some gastritis. -prescribed omeprazole OTC (PriLOSEC OTC) 20 MG EC Mild intermittent asthma without complication Assessment & Plan (10/18/2024 1:23 PM EST): Dx with Influenza A on 10/15/24. Needs refill of albuterol. Lungs clear on exam, except for mild wheeze with cough. -refilled albuterol 108 (90 Base) MCG/ACT inhaler Nephrolithiasis 09/14/2022 Anemia 09/07/2022 BMI 31.0-31.9,adult 09/07/2022 Resolved Problems Problem Noted Date Diagnosed Date Resolved Date Encounter for preventive health examination 01/05/2024 07/27/2024 Assessment & Plan (01/05/2024 9:56 AM EDT): Discussed with patient re increase fresh fruit and vegetable intake. Counseled re moderate exercise as tolerated, up to 20min/d Patient feels safe at home. PAP smear up to date, next one due 2027 Eye exam Up to date, next one due 2024 Labs up to date. Fu w/ PCP Vaccinations has declined covid, advised to have in in our covid IZ clinic as soon as convenient, MMR and Hep B and all other IZ are up to date Dental visit up to date, next one due 03/2024 Subacute cough 01/05/2024 02/22/2025 Assessment & Plan (01/05/2024 9:54 AM EDT): R/o postnasal drip, seasonal allergies Start zyrtec + flonase x 1 m and fu w/ PCP Tonsillolith 01/05/2024 07/27/2024 Assessment & Plan (01/05/2024 9:55 AM EDT): None seen at this time Advised to do listerine + water gurgles after each meal and fu w/ PCP Encounters Date Type Department Care Team Description 06/25/2025 10:00 AM EST Office Visit [facility] [address] [place] [phone] Ivy Harman DO Arrived 06/25/2025 Travel 06/18/2025 Telephone [facility] [address] [place] [phone] Ivy Harman DO Chart Prep 06/18/2025 Patient Outreach [facility] [address] [place] [address] [phone] Ivy Harman DO Pre-visit Planning (SDOH Screening negative and Tobacco screening negative) 06/14/2025 Telephone [facility] [address] [place] [phone] Ivy Harman DO March recall 06/11/2025 Telephone [facility] [address] [place] [phone] Ivy Harman DO Nurse Triage 04/05/2025 Refill [facility] [address] [place] [phone] Ivy Harman DO BMI 31.0-31.9,adult from Last 3 Months Immunizations Immunization Administration Dates Next Due MMR 12/23/2021,11/25/2021 Tdap 11/03/2021 Social History Tobacco Use Types Packs/Day Years [...] Orientation Straight 06/14/2022 10 :32 AM EDT Last Filed Vital Signs Vital Sign Reading Time Taken Comments Blood Pressure 128/84 06/25/2025 10:19 AM EST Pulse 100 06/25/2025 10:19 AM EST Temperature 36.9 C (98.4 F) 06/25/2025 10:19 AM EST Respiratory Rate 20 06/25/2025 10:19 AM EST Oxygen Saturation 98% 12/25/2024 2:39 PM EDT Inhaled Oxygen Concentration - - Weight 70.9 kg (156 lb 6.4 oz) 06/25/2025 10:19 AM EST Height 154.9 cm (5' 1 ) 06/25/2025 10:19 AM EST Body Mass Index 29.55 06/25/2025 10:19 AM EST Plan of Treatment Upcoming Encounters Date Type Department Care Team (Late st Contact Info) Description 07/26/2025 9:45 AM EST Office Visit [facility] [address] [place] [address] Juan Ramon Ballard MD [address] [place], [place] [phone] Health Maintenance Due Date Last Done Comments Disability Screening 1985 Family Planning (PISQ) 2002 HPV Vaccines (1 - 3-dose series) 2002 Hepatitis B Vaccines (1 of 3 - 19+ 3-dose series) 2006 Pneumococcal Vaccine: Pediatrics (0 to 5 Years) and At-Risk Patients (6 to 49) Years (1 of 2 - PCV) 2006 COVID-19 Vaccine ( - season) 2025 Influenza Vaccine (#1) 2025 Alcohol/Substance Use Screening 07/27/2025 07/27/2024 Diabetes: Hemoglobin A1C 12/25/2025 025, 07/27/2024, 08/16/2023, Additional history exists SDOH Screening 06/18/2026 06/18/2025 Depression Screening 06/25/2026 06/25/2025, 06/25/20 Tobacco Screening 06/25/2026 06/25/2025 Cervical Cancer Screening 08/04/2026 Pap Smear 08/04/2026 08/04/2023, 01/13, 07/04/2020 HPV/Cotest 08/04/2028 08/04/2023, 01/13, 07/04/2020, Additional history exists DTaP/Tdap/Td Vaccines (2 - Td or Tdap) 11/04/2031 11/03/2021 Zoster Vaccines (1 of 2) 2037 RSV Patients and Patients Aged 60 years or older (1 - 1-dose 75+ series) 2062 HIV Screening Completed 07/27/2024, 09/2023, 03/18/2022, Additional history exists Hepatitis C Screening Completed 07/27/2024 , 08/16/2023, 03/18/2022, Additional history exists HIB Vaccines Aged Out No longer eligi [...] patient's age to complete this topic Meningococcal Vaccine Aged Out No karan tomi eligible based on patient's age to complete this topic RSV under 20 months Aged Out No longe r eligible based on patient's age to complete this topic Rotavirus Vaccines Aged Out No longer eligible based on patient's age to complete this topic Procedures Procedure Name Priority Date/Time Associated Diagnosis Comments HEMOGLOBIN A1C Routine 12/25/2024 4:15 PM EDT Prediabetes HEPATITIS C AB W/REFL TO HCV RNA, QN, PCR Routine 07/27/2024 1:06 PM EST Anemia, unspecified type Abnormal pelvic ultrasound Pain and numbness of upper extremity Bilateral hand pain Abdominal mass, unspecified abdominal location Onychomycosis Healthcare maintenance HIV 1/2 ANTIGEN/ANTIBODY, FOURTH GENERATION W/RFL Routine 07/27/2024 1:06 PM EST Anemia, unspecified type Abnormal pelvic ultrasound Pain and numbness of upper extremity Bilateral hand pain Abdominal mass, unspecified abdominal location Onychomycosis Healthcare maintenance HPV MRNA E6/E7 REFLEX TO HPV 16, 18/45 Routine 08/04/2023 9:02 AM EST PAP SMEAR Routine 08/04/2023 9:02 AM EST from Last 3 Months or Most Recently Relevant to Health Maintenance Results * Hemoglobin A1c (12/25/2024 4:15 PM EDT) Hemoglobin A1c 6.0 <6.0 % [facility] Comment:Hemoglobin A1C Refer ence Range Adults: 4.8 - 6.0 % Non diabetic: < 6.0 % Goal: < 7.0 %Additional Action Suggested: > 8.0 %Note: Hemoglobin A1c results are invalid for patients with abnormal amounts of HbF. Blood transfusions may impact the HbA1c concentration in the patient sample. Estimated Average Glucose 126 mg/dL [facility] Comment:eAG = Estimated ave rage glucose which is %A1C expressed asaverage glucose, using the formula of the Y1M-RxfxqzzOwianox Glucose study (ADAG), Diabetes Care, Vol.31,#8,Mar. 2007 Blood Venous blood specimen / Unknown 12/25/2024 4:15 PM EDT 12/25/2024 5:56 PM EDT Ivy Harman LAB BLOOD ORDERABLES Final R esult Performing Organization Address City/[facility]/ZIP Co de Phone Number [facility] [address] [place] [phone] * Hepatitis C Antibody with Reflex to HCV, RNA, Quantitative, Real-Time PCR (07/27/2024 1:06 PM EST) Pathologist [facility] Hepatitis C Antibody Nonreactive Nonreactive [facility] Comment:Antibodies to HCV no t detected; does not exclude early acuteHCV infection. Blood Venous blood specimen / Unknown 07/27/2024 1:06 PM EST 07/27/2024 3:56 PM EST Ivy Harman ROBAUTO LAB BLOOD ORDERABLES Final R esult Performing Organization Address [facility] Co de Phone Number [facility] [address] [place] [phone] * HIV-1/2 Antigen and Antibodies, Fourth Generation, with Reflexes (07/27/2024 1:06 PM EST) Pathologist [facility] HIV AB/AG Nonreactive Nonreactive [facility] Comment:HIV-1 p24 Ag and/or HIV-1/HIV-2 Ab not detected.A test result that is nonreactive does not exclude thepossibility of exposure to or infection with HIV-1 and/orHIV-2. Nonreactive results in this assay for individualswith prior exposure to HIV-1 and/or HIV-2 may be due toantigen and antibody levels that are below the limit ofdetection of this assay.The [employer] HIV Ag/Ab Combo assay result andsupplemental assay results should be interpreted inconjunction with the patient's clinical presentation,history and other laboratory results. If the results areinconsistent with clinical evidence, additional testing issuggested to confirm the result. Blood Venous blood specimen / Unknown 07/27/2024 1:06 PM EST 07/27/2024 3:56 PM EST Ivy Harman DO LAB BLOOD ORDERABLES Final R esult [facility] [address] [place] [phone] * HPV mRNA E6/E7 w/Reflex to HPV Genotypes 16, 18/45 (08/04/2023 9:02 AM EST) Pathologist [facility] HPV nRNA E6/E7 Not Detected Not Detected [facility] Comment:Methodology: Transcr iption-Mediated AmplificationThis assay detects E6/E7 viral messenger RNA (mRNA) from 14high-risk HPV types (16,18,31,33,35,39,45,51,52,56,58,59,66,68).Cervical sources are required for HPV testing.If a vaginal source from a patient who has had atotal hysterectomy with removal of cervix wassubmitted, please contact the testing laboratoryfor alternative testing options.For additional information, please refer tohttp://education.Fwd: Power/faq/ELQ589w8(This link if provided for information/educational purposes only.)THIS TEST WAS PERFORMED AT:[employer] [place] [phone] GHOTRA MD HPV mRNA E6/E7 TNP [facility] HPV 16 RNA TNP [facility] HPV 18/45 RNA TNP [facility] 08/04/2023 9:02 AM EST 08/05/2023 8:30 AM EST us Ivy Harman DO LAB CYTOLOGY ORDERABLES Diamond l Result [facility] [address] [place] [phone] * Pap Smear (08/04/2023 9:02 AM EST) 08/04/2023 9:02 AM EST 08/05/2023 8:30 AM EST Narrative [facility] - 08/11/2023 1:49 PM EST ----- ------- Name: Ghada Alexandra Age/Sex: 37/F : 1985 Unit#: [id number] Attend Dr: Ivy Harman DO Re08/04/23 Status: DEP REF Location: HO.HHCLNP Disch: ----- ------- SPEC : [id number] RECD: 08/05/23 STATUS: TAVARES HALEY NUM: [id number] CHEKO: 08/04/23-[address] [facility] [address]: Ivy Haramn DO ENTERED: 08/05/23 SP TYPE: Pap Smr OTHR DR: ORDERED: Pap Smear Interpretation Satisfactory for evaluation. Negative for intraepithelial lesion or malignancy. HPV mRNA E6/E7: NOT DETECTED This assay detects E6/E7 viral messenger RNA (mRNA) from 14 high-risk HPV types (16, 18, 31, 33, 35, 39, 45, 51, 52, 56, 58, 59, 66, 68) HPV testing performed by [employer], [place], [place]. See reference laboratory portion of the EMR for entire report. Clinical Information LMP: 07/27/2023 Previous PAP test: 01/2022, NILM HPV negative Other history: h/o abnormal pap Material Received ThinPrep-Cervical ----- ------- Signed (signature on file) PERICO Yin (ASCP) 08/11/23 1349 ----- ------- END OF REPORT Ivy Harman DO LAB CYTOLOGY ORDERABLES Diamond garcía Result [facility] [address] [place] [phone] from Last 3 Months or Most Recently Relevant to Health Maintenance Insurance C3 Care Teams Cemetery Counselor Relationship Specialty Start Date End Date Ivy Harman DO [address] [place] [address] PCP - General Family Medicine 07/11/17
--- OUTSIDE RECORDS SUMMARY | 2025-06-27 08:52 | XMS_ITS | Encounter Summary ---
Author Organization [employer] Address [address] [facility] [address]t [place] [address] Care Team Providers Care Teaching Music Lessons Name Role Phone Ivy Harman DO Primary Care Provider + [phone] Reason for Visit * Reason Onset Date Comments Appointment Request 09/01/2023 Encounter Details Date Type Department Care Team ([facility] st Contact Info) Description 09/01/2023 Telephone [facility] [address] [place], [place] [phone] Ivy Harman DO [address] [place], [place] [phone] Appointment Request Social History Tobacco Use Types Packs/Day Years Used Date Smoking Tobacco: Never Passive Smoke Exposure: Never Alcohol Use Standard Drinks/Week Comments Never 0 (1 standard drink = 0.6 oz pur e alcohol) Depression Answer Date Recorded Patient Health Questionnaire-9 Score 0 09/14/2022 Housing Stability Answer Date Recorded What is your housing situation today? I have anastasiia yousif 06/13/[address] you li ve. Do you have problems with any of the following? None of the above 06/13/2023 Food Insecurity Answer Date Recorded Within the past 12 months, y ou worried that your food would run out before you got money to buy more: Never True 06/13/2023 Within the past 12 months,th e food you bought just didn't last and you didn't have enough money to get more: Never True Transportation Answer Date Recorded In the past 12 months, has l ack of transportation kept you from medical appts, meetings, work or from getting things needed for daily living? No 06/13/2023 Utilities Answer Date Recorded In the past 12 months, has t he electric, gas, oil or water company threatened to shut off services in your home? No 06/13/2023 Depression Answer Date Recorded Patient Health Questionnaire-2 Score 0 09/14/2022 Comments No Sex and Gender Information Value Date Recorded Sex Assigned at Female 06/14/2022 10:32 AM EDT Legal Sex Female 10:32 AM EDT Gender Identity Female 06/14/2022 10:32 AM EDT Sexual Orientation Straight 06/14/2022 10 :32 AM EDT documented as of this encounter Miscellaneous Notes * Telephone Encounter - Mihir Serrano - 09/01/2023 10:01 AM EST Tc from pt needing PE for work. Please contact pt at [phone]. documented in this encounter Plan of Treatment Upcoming Encounters Date Type Department Care Team (Late st Contact Info) Description 07/26/2025 9:45 AM EST Office Visit [facility] [address] [place] [address] Juan Ramon Ballard MD [address] [place] [address] documented as of this encounter Visit Diagnoses Not on filedocumented in this encounter Additional Health Concerns Assessment Noted Time PHQ-9 Depression Total Score: 0 09/14/19 23 9:08 AM EST documented as of this encounter Care Teams Teaching Music Lessons Relationship Specialty Start Date End Date Ivy Harman DO [address] [place] [phone] PCP - General Family Medicine 07/11/17 documented as of this encounter
== END 2025-06-27 08:32 | disposition home or self-care (01) ==
LOC: HO.HHCL 08:31
PROVIDERS: PCP Family Medicine; Visit Provider Family Medicine
DX: Z13.89 Encounter for screening for other disorder (principal)

== ENCOUNTER 2025-07-26 08:11 | Outpatient (REF) | payer MEDICAID, SELFPAY ==
[2025-07-26 11:19] LABS: Hematocrit 38.2 % (37.0-47.0); Hemoglobin 12.0 g/dl (12.0-16.0); Mean Corpuscular HGB Conc 31.4 g/dl (31.0-35.0); Mean Corpuscular Hemoglobin 27.2 pg (27.0-33.0); Mean Corpuscular Volume 86.6 fL (80.0-98.0); NRBC Abs Auto 0.000 X10*3/uL (0.0-0.012); NRBC Pct Auto 0.0 /100WBC (0.0-0.2); Platelet Count 267 X10*3/uL (160-400); Red Blood Count 4.41 X10*6/uL (4.20-5.50); White Blood Count 9.5 X10*3/uL (4.8-10.8)
[2025-07-26 11:40] LABS: Alanine Aminotransferase 26 U/L (0-31); Albumin Level 4.4 g/dL (3.5-5.0); Alkaline Phosphatase 70 U/L (39-117); Anion Gap 9 (12-20); Aspartate Amino Transferase 23 U/L (5-31); Blood Urea Nitrogen 12 mg/dL (9-16); Calcium 9.5 mg/dL (8.4-10.2); Carbon Dioxide 28 mmol/L (22-29); Chloride 102 mmol/L (96-108); Cholesterol 201 mg/dL (<200); Estimated Glomerular Filt Rate > 60; HDL Cholesterol 65 mg/dL (>40); Iron 130 mcg/dL (30-160); Percent Iron Saturation 35 % (15-50); Potassium 4.1 mmol/L (3.3-5.1); Sodium 135 mmol/L (135-145); Total Iron Binding Capacity 370 mcg/dL (228-428); Total Protein 7.6 g/dL (6.5-8.0); Triglycerides 114 mg/dL (<150); Unsaturated Iron Binding 240 ug/dL
[2025-07-26 11:56] LABS: HBS Num1 34.25 mIU/mL (0-7.99); HBsAGNum1 0.57 S/CO (0.00-0.99); HIV Num 1 0.05 S/CO (0.00-0.99); Hepatitis B Surface Antigen Negative (Negative); ~HepC Num1 0.15 S/CO (0.00-0.79); ~Hepatitis B Surface Antibody REACTIVE (Nonreactive); ~Hepatitis C Antibody Nonreactive (Nonreactive)
[2025-07-26 11:57] LABS: Ferritin 22 ng/mL (10-122); Free T4 (Free Thyroxine) 0.96 ng/dL (0.71-1.85); Thyroid Stimulating Hormone 0.68 uIU/mL (0.32-4.0)
[2025-07-26 12:11] LABS: Folate 10.2 ng/mL (> or = 4.0); Vitamin B12 675 pg/mL (200-900)
== END 2025-07-26 08:12 | disposition home or self-care (01) ==
LOC: HO.HHCL 08:11
PROVIDERS: PCP Family Medicine; Visit Provider Family Medicine
DX: Z11.4 Encounter for screening for human immunodeficiency virus [HIV] (principal); D64.9 Anemia, unspecified; Z11.59 Encounter for screening for other viral diseases; Z11.3 Encounter for screening for infections with a predominantly sexual mode of transmission
CPT/HCPCS: 36415; 80048; 80061; 80076; 82306; 82607; 82728; 82746; 83036; 83540; 84439; 84443; 85027; 86592; 86706; 86803; 87340; 87389